=== PATIENT | male | born 1985 | race Two or more races ===

== ENCOUNTER 2021-12-28 12:46 | Emergency (ER) | payer SELFPAY ==
[~2021-12-28] VITALS: Ht 162.6 cm; Wt 111.1 kg
[2021-12-28 12:54] VITALS: BP 155/80
[2021-12-28] MEDS ORDERED: CEPH-509 PO (14:57)
== END 2021-12-28 15:03 | disposition home or self-care (01) ==
LOC: ER 12:46
DX: S61.207A Unspecified open wound of left little finger without damage to nail, initial encounter (principal); W26.9XXA Contact with unspecified sharp object(s), initial encounter; Y93.89 Activity, other specified; Y92.89 Other specified places as the place of occurrence of the external cause; Y99.8 Other external cause status